=== PATIENT | female | born 1990 | race Caucasian/White ===

== ENCOUNTER 2017-12-07 09:26 | Emergency (ER) | payer OTHER ==
[~2017-12-07] VITALS: Ht 162.6 cm; Wt 61.0 kg
[2017-12-07 09:38] VITALS: Ht 162.6 cm; Wt 61.0 kg
[2017-12-07 10:36] LABS: microscopic required? NO
[2017-12-07 11:21] LABS: UA SPECIFIC GRAVITY <=1.005 (1.005-1.035); urine erythrocyte NEGATIVE (NEGATIVE)
[2017-12-07 11:28] VITALS: BP 104/60
== END 2017-12-07 12:29 | disposition home or self-care (01) ==
LOC: ED 09:26
PROVIDERS: Emergency Medicine
DX: O20.0 Threatened abortion (principal)
CPT/HCPCS: Q0092

== ENCOUNTER 2017-12-10 09:07 | Emergency (ER) | payer OTHER ==
[~2017-12-10] VITALS: Ht 162.6 cm; Wt 61.2 kg
[2017-12-10 09:20] VITALS: Ht 162.6 cm; Wt 61.2 kg
[2017-12-10 11:00] VITALS: BP 102/46
== END 2017-12-10 11:01 | disposition home or self-care (01) ==
LOC: ED 09:07
DX: O03.9 Complete or unspecified spontaneous abortion without complication (principal)